=== PATIENT | female | born 1980 | race Two or more races ===

== ENCOUNTER 2017-10-20 02:39 | Emergency (ER) | payer SELFPAY ==
[~2017-10-20] VITALS: Ht 167.6 cm; Wt 122.0 kg
--- NOTE | 2017-10-20 02:39 | NUR ---
BIBSELF C/O NUMBNESS TO LEFT SIDE OF BODY X 3 WEEKS. NOTED VERY ANXIOUS. VSS NAD A/OX4 ABLE TO MAKE NEEDS KNOWN. WILL CONTINUE TO MONITOR FOR NAY CHANGES DURING THE SHIFT.
--- NOTE | 2017-10-20 02:40 | NUR ---
ER MD COMER AT BEDSIDE
--- NOTE | 2017-10-20 03:13 | NUR ---
EKG AT BEDSIDE
[2017-10-20 03:32] LABS: BASOPHILS % (AUTO) 0.3 % (0.0-2.0); EOSINOPHILS % (AUTO) 1.8 % (0.0-6.0); HEMATOCRIT 41 % (33-45); HEMOGLOBIN 13.6 g/dL (11.5-14.8); LYMPHOCYTES # (AUTO) 2.9 /CMM (0.8-4.8); LYMPHOCYTES % (AUTO) 34.7 % (20.0-44.0); MEAN CORPUSCULAR HGB CONC 33 g/dl (31.0-36.0); MEAN CORPUSCULAR VOLUME 81 fL (82-100); MONOCYTES # (AUTO) 0.4 /CMM (0.1-1.30); MONOCYTES % (AUTO) 4.6 % (2.0-12.0); NEUTROPHILS # (AUTO) 4.8 /CMM (1.8-8.9); NEUTROPHILS % (AUTO) 58.6 % (43.0-81.0); PLATELET COUNT (AUTO) 319 /CMM (150-450); RDW COEFFICIENT OF VARIATION 14.1 (11.5-15.0); RED BLOOD CELL COUNT(AUTO) 5.03 MIL/uL (4.0-5.2); WHITE BLOOD COUNT (AUTO) 8.2 K/uL (4.3-11.0)
[2017-10-20 03:47] LABS: CALCIUM, SERUM 8.6 mg/dL (8.5-10.1); CREATININE 0.9 mg/dL (0.6-1.3); POTASSIUM 3.4 mmol/L (3.5-5.1)
[2017-10-20 04:02] LABS: THYROID STIMULATING HORMONE 4.567 uIU/mL (0.358-3.74)
--- NOTE | 2017-10-20 04:09 | NUR ---
PT OFF TO CT
--- NOTE | 2017-10-20 04:17 | NUR ---
PT BACK FROM CT
[2017-10-20 05:26] VITALS: BP 150/84
== END 2017-10-20 05:26 | disposition home or self-care (01) ==
LOC: ER 02:42
DX: F41.9 Anxiety disorder, unspecified (principal); E28.2 Polycystic ovarian syndrome; E03.9 Hypothyroidism, unspecified
CPT/HCPCS: 36415; 70450-TC; 71045-TC; 80048-TC; 84443-TC; 85025-TC; A4606; Z7610